=== PATIENT | female | born 1955 | race Caucasian/White ===

== ENCOUNTER 2021-10-09 07:46 | Outpatient (CLI) | payer MEDICARE, MEDICAID ==
[2021-10-09 10:11] LABS: Hemoglobin 11.2 g/dL (12.0-15.5); Mean Corpuscular HGB CONC 33.2 g/dL (32.0-36.0); Mean Corpuscular Hemoglobin 32.2 pg (27.0-33.0); Mean Corpuscular Volume 96.8 fl (81.6-98.3); Mean Platelet Volume 9.4 fl (7.4-10.4); Platelet Count 256 10x3/uL (150-450); RBC Distribution Width 12.5 % (11.5-14.5); Red Blood Cell (RBC) Count 3.48 10x6/uL (3.90-5.03); White Blood Cell (WBC) Count 5.3 10x3/uL (3.5-10.5)
[2021-10-09 10:15] LABS: Anion Gap 15 mmol/L (10-20); BUN (Urea Nitrogen) 38 mg/dL (9.8-20.1); Calc. Creatinine Clearance 0 mL/min (70-130); Calcium 9.4 mg/dL (7.8-10.44); Carbon Dioxide 26 mmol/L (23-31); Chloride 99 mmol/L (98-107); Glucose 61 mg/dL (80-115); Potassium 5.1 mmol/L (3.5-5.1); Sodium 135 mmol/L (136-145)
[2021-10-09 15:31] LABS: SARS-CoV-2 PCR by NAA Not Detected (NotDetected)
== END 2021-10-09 07:47 | disposition home or self-care (01) ==
LOC: CSHLAB 07:46
PROVIDERS: ATTEND Orthopaedic Surgery
DX: Z01.818 Encounter for other preprocedural examination (principal); Z20.822 Contact with and (suspected) exposure to COVID-19; S82.231 Displaced oblique fracture of shaft of right tibia; E11.42 Type 2 diabetes mellitus with diabetic polyneuropathy; S82.871P Displaced pilon fracture of right tibia, subsequent encounter for closed fracture with malunion
CPT/HCPCS: 80048; 85027; 93005; 93010; U0003; U0005

== ENCOUNTER 2021-10-14 08:30 | Day surgery (SDC) | payer MEDICARE, MEDICAID ==
[2021-10-10 12:35] VITALS: BMI 22.6
[2021-10-14] MEDS ORDERED: Lidocaine 1% MPF 2 ML VIAL ONE (08:51)
[2021-10-14] MEDS ORDERED: Ropivacaine 0.5% HCl/PF (150 MG/30 ML VIAL) ONE (09:37)
[2021-10-14] MEDS ORDERED: Lidocaine 1% PF 5 ML VIAL ONE ×2 (09:38→09:47)
[2021-10-14] MEDS ORDERED: Midazolam HCl 2 mg/2 ml Vial ONE (09:38)
[2021-10-14] MEDS ORDERED: Fentanyl 100 MCG/2 ML VIAL ONE ×2 (09:38→09:47)
[2021-10-14] MEDS ORDERED: PROPOFOL 20 ML ONE (09:47)
[2021-10-14] MEDS ORDERED: Neomycin-Polymyxin 1 ML AMP ONE (09:56)
[2021-10-14] MEDS ORDERED: ceFAZolin 2 GM/Dextrose 50 ML IVPB ONE (10:07)
[2021-10-14] MEDS ORDERED: ePHEDrine Sulfate 50 MG/10 ML VIAL ONE (10:39)
[2021-10-14] MEDS ORDERED: Ondansetron PF 4 MG/2 ML Vial ONE ×2 (12:44→13:40)
== END 2021-10-14 15:00 | disposition home or self-care (01) ==
LOC: CSHSDC 08:30
PROVIDERS: ATTEND Orthopaedic Surgery
PROC: 0QSG04Z Reposition Right Tibia with Internal Fixation Device, Open Approach (ICD-10-PCS; principal; 2021-10-14)
DX: S82.231 Displaced oblique fracture of shaft of right tibia (principal); S82.871P Displaced pilon fracture of right tibia, subsequent encounter for closed fracture with malunion; M24.661 Ankylosis, right knee; E11.42 Type 2 diabetes mellitus with diabetic polyneuropathy; G47.30 Sleep apnea, unspecified; Z88.5 Allergy status to narcotic agent; Z88.8 Allergy status to other drugs, medicaments and biological substances; Z87.891 Personal history of nicotine dependence
CPT/HCPCS: 27418; 64445; 64447; 73610; 82962; C1713 ×2; 36416; 88304; 88311; J0690; J2250; J2405; J2704; J2795; J3010; J3370

== ENCOUNTER 2022-02-04 11:26 | Emergency (ER) | payer MEDICARE, OTHER ==
[2022-02-04] MEDS ORDERED: HYDROcodone/Acetaminophen 10/325 mg Tablet ONE (12:57)
[2022-02-04] MEDS ORDERED: Lidocaine 1% w/Epinephrine 1:200K 30 ML VIAL ONE (13:13)
[2022-02-04] MEDS ORDERED: HYDROmorphone 0.5 MG/0.5 ML SYRINGE ONE (13:58)
== END 2022-02-04 14:40 | disposition home or self-care (01) ==
LOC: CSHERS 11:26
DX: S01.81XA Laceration without foreign body of other part of head, initial encounter (principal); E11.9 Type 2 diabetes mellitus without complications; I10 Essential (primary) hypertension; J44.9 Chronic obstructive pulmonary disease, unspecified; Z87.891 Personal history of nicotine dependence; W19.XXXA Unspecified fall, initial encounter
CPT/HCPCS: 12011; 70450; 72125; 96372; J1170